=== PATIENT | female | born 1955 | race Caucasian/White ===

== ENCOUNTER → 2016-12-29 | Outpatient (CLI) | payer OTHER ==
[~2016-12-29] MED LIST: ALPRAZOLAM0.25 MG PO; AZITHROMYCIN250 MG PO; BACLOFEN10 MG PO; CHANTIX PO; CHOLECALCIFEROL PO; CIPRO PO; DIAZEPAM PO; HYDROCODON-ACE1 EAC5 PO; HYDROCODON-ACE1 EAC7 PO; HYDROCODONE/APA1 T16 PO; LIORESAL10 MG PO; LIPITOR PO; MEDROL4 MG/DOSE- PO; MELATIN3 MG PO; MELOXICAM15 MG PO; MOBIC PO; MOBIC15 MG PO; PAROXETINE HCL20 MG PO; PAROXETINE HCL40 M1 PO; PAXIL PO; PERCOCET 51 UDTAB 5/ PO; PRAVASTATIN SOD40 MG PO; PROAIR HFA8.5 GM INH; TAMSULOSIN HCL0.4 MG PO; VICODIN 5/500 T1 TAB PO; VOLTAREN75 MG PO; XARELTO10 MG PO; ZITHROMAX PO; ZOFRAN ODT4 MG PO; ZYRTEC10 M2 PO; [UNRECOGNIZED DRUG - OTHER]; [UNRECOGNIZED DRUG - OTHER] PO
--- NOTE | ~2016-12-29 | MY11 ---
[facility] A Service of [facility] RADIOLOGY TEXT RESULTS PATIENT: EDILSON VASQUEZ LOCATION: [facility] : 51 UNIT #: [id number] AGE: [address]: Nadeem Canchola MD SEX: F ORDER DR: [id number] [address] [address] [id number] O MR#: [id number] Acc #: [id number] NAME: EDILSON VASQUEZ : 1955 SEX: F STUDY DATE/TIME: 12/29/2016 11:43 UNIT: [facility] ROOM: STUDY DESCRIPTION: MY Mammogram Screening Dig Brad Attending Physician: Nadeem Canchola M.D. Referring Physician: Nadeem Canchola M.D. Ordering Physician: Nadeem Canchola M.D. Primary Care Physician: Nadeem Canchola M.D. MEDICAL IMAGING REPORT This report is preliminary unless electronic signature is present. EXAM Digital screening mammogram 12/29/2016 [facility]. HISTORY 61-year-old woman; new baseline mammogram. No risk elevation. COMPARISON None. Previous mammogram 15 years ago. FINDINGS Digital imaging of each breast was completed utilizing a two-view examination of each breast in craniocaudal and mediolateral-oblique projections. Review and interpretation of digital mammograms include a second review in conjunction with FDA-approved CAD device. There is a normal parenchymal presentation bilaterally consistent with the patient's age. There are no breast masses imaged and no parenchymal asymmetry is visualized. There are no suspicious microcalcifications and I see no focal architectural disturbance. NOTE: Breast parenchyma is fatty replaced IMPRESSION Negative screening digital mammogram. One-year followup recommended. Patients over the age of 40 are entered into a reminder system with target due date for the next mammogram. A result letter will also be sent to the patient. BIRADS: 1 Negative [facility] A Service of [facility] RADIOLOGY TEXT RESULTS PATIENT: EDILSON VASQUEZ LOCATION: [facility] : 51 UNIT #: [id number] AGE: [address]: Nadeem Canchola MD SEX: F ORDER DR: Dictated by... Cyril Cullen M.D. THIS IS AN ELECTRONICALLY VERIFIED REPORT Cyril Cullen M.D. at 12/30/2016 1:24 PM TOM/kriss TD: 12/29/2016 13:23 JOB #: [id number] MEDICAL IMAGING REPORT Page 1 of 1
== END | disposition home or self-care (01) ==
LOC: SMAM 11:07
DX: Z12.31 Encounter for screening mammogram for malignant neoplasm of breast (principal)
CPT/HCPCS: G0202

== ENCOUNTER → 2017-01-08 | Day surgery (SDC) | payer OTHER ==
--- NOTE | ~2017-01-08 | OR ---
Unit #: [id number] #: [id number] Patient: EDILSON VASQUEZ [id number] [address] [address] [id number] O MR#: [id number] NAME: EDILSON VASQUEZ. ROOM: Date of Procedure: 01/08/2017 Admission Date: 01/08/2017 Surgeon: Armando Stone M.D. : 1955 Attending Physician: Armando Stone M.D. Primary Care Physician: Nadeem Canchola M.D. OPERATIVE REPORT PREOPERATIVE DIAGNOSIS Screening colonoscopy. POSTOPERATIVE DIAGNOSIS Screening colonoscopy. PROCEDURES PERFORMED 1. Colonoscopy to cecum. 2. Polypectomy with electrocautery snare at 120 cm, 60 cm x2. ANESTHESIA Monitored anesthesia care. FINDINGS The patient was found to have occasional sigmoid diverticula and mild internal hemorrhoids. A 5 mm polyp was excised with electrocautery snare with good hemostasis at 120 cm and two more at 60 cm. SPECIMENS Sent to pathology. COMPLICATIONS None apparent. CONDITION The patient tolerated the procedure well. INDICATIONS FOR PROCEDURE The patient is a 61-year-old white female, who presents at this time for screening colonoscopy. DESCRIPTION OF PROCEDURE After obtaining informed consent, the patient was brought to the endoscopy suite. After adequate monitored anesthesia care was obtained, a digital examination was performed and the patient had good sphincter tone and no masses palpable. The colonoscope was placed through the anus and slowly advanced to the level of the cecum without difficulty with the lumen always in view. The cecum was normal as was the ileocecal valve. The ascending colon was normal as was the hepatic flexure. Just beyond the hepatic flexure at 120 cm, a 5 mm polyp was excised completely with electrocautery snare, retrieved with a mucus trap, and sent to pathology. There was good hemostasis. The remaining portion of the transverse colon Unit #: [id number] #: [id number] Patient: EDILSON VASQUEZ and splenic flexure were normal. At 60 cm in the proximal descending colon, there were two small 4 to 5 mm polyps present. There were adjacent to each other. Each was excised with electrocautery snare with good hemostasis. They were retrieved and sent to pathology. The remaining portion of the descending colon and sigmoid colon were normal except for a few scattered diverticula. There were not very numerous. The rectosigmoid and rectum were all within normal limits. On retroflexing in the rectum to the anorectal junction, the patient was found to have some mild internal hemorrhoids. The scope was removed without difficulty. The patient went from the endoscopy suite to the recovery area in stable condition. RECOMMENDATIONS High-fiber diet, lots of liquids, tucks or wipes p.r.n. Diverticular sheet given. Call Thursday for pathology. Repeat colonoscopy in 3 years time. Dictated by... Andrzej Franco/saul TD: 01/09/2017 03:52 JOB #: [id number] [facility] OPERATIVE REPORT Page 1 of 1 X Armando Stone MD X PROCEDURE OPERATIVE NOTE
== END | disposition home or self-care (01) ==
LOC: COPS 09:11
DX: Z12.11 Encounter for screening for malignant neoplasm of colon (principal); D12.6 Benign neoplasm of colon, unspecified; K57.90 Diverticulosis of intestine, part unspecified, without perforation or abscess without bleeding; K64.8 Other hemorrhoids; M19.90 Unspecified osteoarthritis, unspecified site; G47.30 Sleep apnea, unspecified; Z87.442 Personal history of urinary calculi; Z87.891 Personal history of nicotine dependence; Z98.890 Other specified postprocedural states; Z79.899 Other long term (current) drug therapy; Z80.1 Family history of malignant neoplasm of trachea, bronchus and lung; Z80.0 Family history of malignant neoplasm of digestive organs
CPT/HCPCS: 88305; J2250